=== PATIENT | female | born 1960 | race Two or more races ===

== ENCOUNTER 2019-06-21 06:35 | Day surgery (SDC) | payer OTHER ==
[~2019-06-21] VITALS: Ht 149.9 cm; Wt 63.6 kg
[~2019-06-21 06:35] MED LIST: SODIUM CHLORIDE 0.9% 1,000 ML IV ONE
[2019-06-21] MEDS ORDERED: ALBUTEROL SULFATE 2.5 MG/0.5 ML NEB SOLUTION NEB ONE (06:36)
[2019-06-21] MEDS ORDERED: LIDOCAINE 2% 30 ML JELLY TP ONE (06:36)
[2019-06-21] MEDS ORDERED: BENZOCAINE 20% 50 MCG/SPRAY 57 GM TP ONE (06:36)
[2019-06-21] MEDS ORDERED: LIDOCAINE 4% 50 ML SOLUTION TP ONE (06:36)
[2019-06-21 07:25] LABS: GLUCOMETER DEV NAME(LOC) SDS.; GLUCOSE,POINT OF CARE 176 MG/DL (70-110)
[2019-06-21] MEDS ORDERED: FentaNYL CITRATE-PF 100 MCG/2 ML VIAL ONE (07:32)
[2019-06-21] MEDS ORDERED: MIDAZOLAM HCL 2 MG/2 ML VIAL ONE (07:32)
[2019-06-21] MEDS ORDERED: CHOL200059 PO (07:43)
[2019-06-21] MEDS ORDERED: ALBU8HFA IH (07:43)
[2019-06-21] MEDS ORDERED: ALEN70TA10 PO (07:43)
[2019-06-21] MEDS ORDERED: METF-960 PO (07:43)
[2019-06-21] MEDS ORDERED: SITA100 PO (07:43)
[2019-06-21] MEDS ORDERED: MONT10TA21 PO (07:43)
[2019-06-21] MEDS ORDERED: BECL10.62 IH (07:43)
[2019-06-21] MEDS ORDERED: MULT1CAP32 PO (07:43)
[2019-06-21] MEDS ORDERED: ATOR20TA86 PO (07:43)
[2019-06-21] MEDS ORDERED: ASPI81 PO (07:43)
[2019-06-21] MEDS ORDERED: LOSA50TA64 PO (07:43)
[2019-06-21] MEDS ORDERED: LEVO100 PO (07:43)
[2019-06-21] MEDS ORDERED: MethylPREDNISolone SOD SUCC 125 MG/2 ML VIAL IVP ONE (08:45)
[2019-06-21] MEDS ORDERED: OXYGEN THERAPY IH SCH (20:00)
== END 2019-06-21 10:20 | disposition home or self-care (01) ==
LOC: SURGERY 06:35
PROVIDERS: ATTEND Internal Medicine Critical Care Medicine
DX: J38.4 Edema of larynx (principal); B37.0 Candidal stomatitis; I10 Essential (primary) hypertension; I25.10 Atherosclerotic heart disease of native coronary artery without angina pectoris; E78.00 Pure hypercholesterolemia, unspecified; Z98.890 Other specified postprocedural states; Z95.0 Presence of cardiac pacemaker; Z90.710 Acquired absence of both cervix and uterus; Z79.82 Long term (current) use of aspirin
CPT/HCPCS: 31623; 31624; 71045; 82962; 87015; 87070; 87101; 87205; 87206; 87220; 88108; 88312; 93005; J2250; J2930; J3010; J7030